=== PATIENT | female | born 1985 | race Caucasian/White ===

== ENCOUNTER 2017-03-29 09:11 | Inpatient (IN) | payer BC ==
[~2017-03-29] VITALS: Ht 162.6 cm; Wt 93.2 kg
[~2017-03-29 09:11] MED LIST: LEVBID0.375 MG PO; PROBIOTIC-MAJOR PO; PROTONIX 40MG T40 MG PO
[2017-04-25] MEDS ORDERED: LEXAPRO 10MG10 MG PO (13:47)
[2017-04-30] VITALS (45 sets, daily range): BP systolic 96–146; BP diastolic 51–93; PULSE 52–86; TEMP 97.1–98.4
[2017-04-30] MEDS ORDERED: PRENATAL1 TA7 PO (07:42)
[2017-04-30 08:48] LABS: BASO % 0.7 % (0.0-2.0); EOS # 0.1 (0.0-0.7); EOS % 1.3 % (0-4.0); GRAN # 3.7 (1.4-6.5); LYMPH # 1.4 (1.2-3.4); LYMPH % 24.3 % (20.0-51.0); MEAN CELL VOLUME 94 fl (80.0-100.0); MEAN CORPUSCULAR HGB CONC 34 g/dl (33.0-37.0); MEAN PLATELET VOLUME 11.6 fl (7.4-10.4); MONO # 0.4 (0.1-0.6); MONO % 7.3 % (1.7-9.3); PLATELET COUNT 135 K/mm3 (130-400); RED BLOOD COUNT 3.45 M/mm3 (4.10-5.30); REDCELL DISTRIBUTION WIDTH-CV 12.7 % (11.5-14.5); WHITE BLOOD COUNT 5.6 K/mm3 (4.8-10.8)
[2017-04-30 08:49] LABS: HEMATOCRIT 32.3 % (37.0-47.0); HEMOGLOBIN 11.1 g/dl (12.5-16.0); MEAN CORPUSCULAR HEMOGLOBIN 32 pg (27.0-31.0)
[2017-05-01 01:10] VITALS: BP 99/56; PULSE 63; TEMP 98.5
[2017-05-01 04:30] VITALS: BP 107/63; PULSE 64; TEMP 97.5
[2017-05-01 05:43] LABS: HEMATOCRIT 30.9 % (37.0-47.0); HEMOGLOBIN 10.5 g/dl (12.5-16.0)
[2017-05-01 08:00] VITALS: BP 128/88; PULSE 72; TEMP 97.7
[2017-05-01 12:00] VITALS: BP 133/75; PULSE 72; TEMP 98.2
[2017-05-01 16:00] VITALS: BP 116/69; PULSE 70; TEMP 98.1
[2017-05-01 21:10] VITALS: BP 117/64; PULSE 78; TEMP 98.8
[2017-05-02 07:00] VITALS: BP 121/72; PULSE 76; TEMP 98.3
[2017-05-02] MEDS ORDERED: PERCOCET 325 MG1 TA2 PO (09:03)
[2017-05-02] MEDS ORDERED: IBU600 MG PO (09:03)
== END 2017-05-02 14:00 | disposition home or self-care (01) | DRG 775 ==
LOC: LDR 04-30 06:58 → OB 04-30 20:00 → LDRO 05-08 09:10 → EDSTATUS 05-08 09:44
PROVIDERS: Obstetrics & Gynecology
PROC: 10E0XZZ Delivery of Products of Conception, External Approach (ICD-10-PCS; principal; 2017-04-30)
DX: O75.89 Other specified complications of labor and delivery (principal); Z3A.39 39 weeks gestation of pregnancy; Z37.0 Single live birth
CPT/HCPCS: J2590; J7120

== ENCOUNTER 2017-04-25 13:26 | Outpatient (CLI) | payer BC ==
[~2017-04-25] VITALS: Ht 162.6 cm; Wt 93.2 kg
[2017-04-25 13:40] VITALS: BP 131/77; PULSE 67; TEMP 97.6
[2017-04-25] MEDS ORDERED: LEXAPRO 10MG10 MG PO (13:47)
== END 2017-04-25 14:35 | disposition home or self-care (01) ==
LOC: LDRO 13:26
DX: Z34.83 Encounter for supervision of other normal pregnancy, third trimester (principal); Z3A.38 38 weeks gestation of pregnancy

== ENCOUNTER → 2019-09-01 | Outpatient (CLI) | payer BC ==
[~2019-09-01] MED LIST changes: +IBU600 MG PO; +LEXAPRO 10MG10 MG PO; +PERCOCET 325 MG1 TA2 PO; +PRENATAL1 TA7 PO
== END ==
LOC: COL.RAD 08-15 09:45
DX: S73.191A Other sprain of right hip, initial encounter (principal)
CPT/HCPCS: A9585; Q9967

== ENCOUNTER → 2019-09-07 | Outpatient (CLI) | payer BC | LOC: COL.RAD 09:24 | DX: M25.551 Pain in right hip (principal) | CPT/HCPCS: J3301; Q9967 ==